=== PATIENT | female | born 1970 | race Caucasian/White ===

== ENCOUNTER 2020-12-20 21:40 | Emergency (ER) | payer SELFPAY ==
--- NOTE | 2020-12-20 22:04 | XRR_ITS ---
PROCEDURE INFORMATION: Exam: XR Chest Exam date and time: 12/20/2020 10:04 PM Age: 50 years old Clinical indication: Cough and shortness of breath; Additional info: SOB TECHNIQUE: Imaging protocol: XR of the chest. Views: 1 view. COMPARISON: No relevant prior studies available. FINDINGS: Lungs: Hazy opacity at the cardiac apex may be secondary to atelectasis or pneumonia. Pleural spaces: Unremarkable. No pleural effusion. No pneumothorax. Heart/Mediastinum: There is mild cardiomegaly. Bones/joints: There is severe levoscoliosis. XR/XR chest 1V portable [id number] IMPRESSION: 1. Mild cardiomegaly. 2. Hazy opacity at the cardiac apex may be secondary to atelectasis or pneumonia.
[2020-12-20 22:23] VITALS: BP 119/66; PULSE 77; RESP 16; TEMP 36.2; O2SAT 99; BMI 19.8
[2020-12-20 22:29] VITALS: O2SAT 99
--- NOTE | 2020-12-20 22:32 | W.ED.COVID ---
HPI - COVID General: Chief Complaint: COVID symptoms Stated Complaint: sob, not feeling well Time Seen by Provider: 12/20/20 22:32 Triage information: No fever, cough or shortness of breath. No known COVID + exposure last 14 days History of Present Illness: HPI Narrative: 50-year-old female comes in today with complaints of cough, congestion, nausea and vomiting for 2 to 4 weeks. Spouse reports that since 1996 after the loss of a child the patient has always been withdrawn from the family. He believes he probably has a mental health issue but she will not go see a psychiatrist. Spouse states that over the last 2 to 4 weeks she has been ill with cough and congestion. He was unable to get her to come to the hospital up until tonight. Patient is a smoker. Patient takes no routine medications. Patient does have severe scoliosis of the spine. COVID 19 common symptoms: positive non-productive cough, nausea and vomiting COVID Results: SARS-CoV-2 Antigen (Rapid) Negative (Negative) 12/20/20 22:40 12/20/20 Review of Systems General: Reports: 10 or more systems reviewed and unremarkable except in HPI and below Resp: Reports: non-productive cough GI: Reports: nausea and vomiting Physical Exam Const: COMMON NORMALS: no acute distress and patient oriented x3 GENERAL APPEARANCE: cooperative HENMT: COMMON NORMALS: normocephalic, TM's normal bilaterally and Normal external nose present HEAD & SCALP: normal to inspection and normocephalic NOSE: Normal external nose present TYMPANIC MEMBRANE: TM's normal bilaterally MOUTH: Normal oral and palatal mucosa present THROAT: posterior oropharynx normal Eye: GENERAL EYE: appearance normal, both eyes and all related structures Neck/C-Spine: COMMON NORMALS: full ROM Lymph: LYMPHATIC: no lymphadenopathy noted Chest: COMMONS NORMALS: normal inspection of the chest Resp: COMMON NORMALS: normal respiratory effort EFFORT & INSPECTION: Yes able to speak in complete sentences AUSCULTATION: rhonchi (Mild rhonchi throughout.) Cardio: COMMON NORMALS: regular rate and regular rhythm RATE: regular rate RHYTHM: regular rhythm GI: COMMON NORMALS: non-tender : COMMON NORMALS: Yes no CVA tenderness BLADDER/KIDNEY EXAM: Yes no CVA tenderness Back/Pelvis: COMMON NORMALS: no CVA tenderness OTHER: Severe scoliosis of the spine. Extremity: NARRATIVE EXTREMITY EXAM: Bilateral pedal edema with edema resolving just above the ankles. Neuro: COMMON NORMALS: patient oriented x3 and moves all extremities Psych: COMMON NORMALS: mental status grossly normal and cooperative Skin: COMMON NORMALS: no rashes or lesions noted GENERAL SKIN EXAM: no rashes or lesions noted Course Vital Signs: Vital signs: Vital Signs Temperature 97.1 F L 12/20/20 22:23 Pulse Rate 77 12/20/20 22:23 Respiratory Rate 16 12/20/20 22:23 Blood Pressure 119/66 12/20/20 22:23 Pulse Oximetry 99 12/20/20 22:29 MDM - COVID MDM Narrative: Medical decision making narrative: Patient comes in with general complaints for the last 2 to 4 weeks. Family was concerned she might have contracted COVID-19. Patient reports an occasional cough, some nausea and vomiting and diarrhea at times. On exam lungs had some mild rhonchi but good air movement throughout. Abdomen was soft and nontender to palpation. Bowel sounds were present. Vital signs were normal. Differential diagnosis includes but not limited to viral syndrome, COVID-19, dehydration, major depressive disorder. Laboratory values noted mild elevation in hemoglobin and hematocrit, metabolic panel suggested some mild dehydration. Urinalysis noted some ketones in the urine but otherwise unremarkable. COVID-19 test was negative. Patient might have had COVID-19 and is on the recovery side of it. I recommended patient encourage plenty of fluids and increase diet as tolerated. Patient was written a prescription for Zofran to help with nausea. Recommended follow-up in 1 week for recheck with primary care. Lab Data: Labs: Lab Results 12/20/20 12/20/20 12/20/20 Range/Units 22:40 22:40 22:40 WBC 5.4 (4.0-10.0) 10^3/ uL RBC 5.09 (4.1-5.3) 10^6/u L Hgb 16.1 H (11.5-15.3) g/dL Hct 48.0 H (37.0-47.0) % MCV 94.3 (81-99) fl MCH 31.6 (28.0-34.0) pg MCHC 33.5 (30.0-36.0) g/dL RDW 14.7 (12.1-15.1) % Plt Count 285 (130-400) 10^3/c mm MPV 8.2 (7.4-10.4) fL Neut % (Auto) 51.6 % Lymph % (Auto) 40.7 % [place] % (Auto) 5.8 % Eos % (Auto) 0.6 % Baso % (Auto) 0.9 % Neut # (Auto) 2.78 (1.8-7.7) 10^3/u L Lymph # (Auto) 2.2 (0.8-4.8) 10^3/u L [place] # (Auto) 0.3 (0.2-0.9) 10^3/u L Eos # (Auto) 0.0 (0.0-0.8) 10^3/u L Baso # (Auto) 0.1 (0.0-0.1) 10^3/u L Nucleated RBC % (a uto) 0 % Nucleated RBCs # 0.0 /100WBC Sodium 139 (136-145) mmol/L Potassium 3.4 L (3.5-5.1) mmol/L Chloride 102 (98-107) mmol/L Carbon Dioxide 19 L (22-29) mmol/L Anion Gap 21.4 H (5-19) BUN 24 H (6-20) mg/dL Creatinine 0.6 (0.5-0.9) mg/dL GFR Calculation 105.4 (90-130) mL/min Glucose 87 (65-115) mg/dL Calculated Osmolal ity 291 (285-295) mOsm/k g Calcium 8.5 (8.5-10.5) mg/dL Total Bilirubin 0.2 (0.15-1.2) mg/dL AST 12 (0-32) U/L ALT 7 (0-33) U/L Alkaline Phosphata se 87 (35-105) IU/L C-Reactive Protein 0.4 (0.0-4.9) mg/L Total Protein 6.6 (6.6-8.7) g/dL Albumin 4.2 (3.5-5.2) g/dL Globulin 2.4 (1.3-4.6) g/dL Lipase 59 (13-60) U/L Urine Color (Yellow) Urine Appearance (CLEAR) Urine pH (5-7) Ur Specific Gravit y (1.005-1.030) Urine Protein (Negative) Urine Glucose (UA) (Normal) Urine Ketones (Negative) Urine Blood (Negative) Urine Nitrate (Negative) Urine Bilirubin (Negative) Urine Urobilinogen (Negative) mg/dL Ur Leukocyte Geovanna ase (Negative) Urine RBC (0-2) /hpf Urine WBC (0-5) /hpf Ur Squamous Epith Cells (0-5) /hpf Amorphous Sediment Urine Bacteria (NONE) /hpf Hyaline Casts /lpf Urine Mucus /hpf SARS-CoV-2 Ag (Rap id) Negative (Negative) 12/20/20 Range/Units 23:00 WBC (4.0-10.0) 10^3/ uL RBC (4.1-5.3) 10^6/u L Hgb (11.5-15.3) g/dL Hct (37.0-47.0) % MCV (81-99) fl MCH (28.0-34.0) pg MCHC (30.0-36.0) g/dL RDW (12.1-15.1) % Plt Count (130-400) 10^3/c mm MPV (7.4-10.4) fL Neut % (Auto) % Lymph % (Auto) % [place] % (Auto) % Eos % (Auto) % Baso % (Auto) % Neut # (Auto) (1.8-7.7) 10^3/u L Lymph # (Auto) (0.8-4.8) 10^3/u L [place] # (Auto) (0.2-0.9) 10^3/u L Eos # (Auto) (0.0-0.8) 10^3/u L Baso # (Auto) (0.0-0.1) 10^3/u L Nucleated RBC % (a uto) % Nucleated RBCs # /100WBC Sodium (136-145) mmol/L Potassium (3.5-5.1) mmol/L Chloride (98-107) mmol/L Carbon Dioxide (22-29) mmol/L Anion Gap (5-19) BUN (6-20) mg/dL Creatinine (0.5-0.9) mg/dL GFR Calculation (90-130) mL/min Glucose (65-115) mg/dL Calculated Osmolal ity (285-295) mOsm/k g Calcium (8.5-10.5) mg/dL Total Bilirubin (0.15-1.2) mg/dL AST (0-32) U/L ALT (0-33) U/L Alkaline Phosphata se (35-105) IU/L C-Reactive Protein (0.0-4.9) mg/L Total Protein (6.6-8.7) g/dL Albumin (3.5-5.2) g/dL Globulin (1.3-4.6) g/dL Lipase (13-60) U/L Urine Color Yellow (Yellow) Urine Appearance Clear (CLEAR) Urine pH 5 (5-7) Ur Specific Gravit y 1.025 (1.005-1.030) Urine Protein Neg (Negative) Urine Glucose (UA) Norm (Normal) Urine Ketones 2+ H (Negative) Urine Blood 2+ H (Negative) Urine Nitrate Negative (Negative) Urine Bilirubin Neg (Negative) Urine Urobilinogen Norm (Negative) mg/dL Ur Leukocyte Geovanna ase Negative (Negative) Urine RBC 0-4 H (0-2) /hpf Urine WBC 0-4 H (0-5) /hpf Ur Squamous Epith Cells 0-4 H (0-5) /hpf Amorphous Sediment Not Reportable Urine Bacteria Trace (NONE) /hpf Hyaline Casts 0-4 H /lpf Urine Mucus 1+ /hpf SARS-CoV-2 Ag (Rap id) (Negative) COVID Results: SARS-CoV-2 Antigen (Rapid) Negative (Negative) 12/20/20 22:40 12/20/20 Discharge Plan Discharge Patient Disposition: Home Clinical Impression: Viral syndrome, Mild dehydration Condition: Stable Prescriptions: New ondansetron 4 mg tablet,disintegrating 4 mg PO Q8H PRN (Reason: nausea and vomiting) Qty: 7 RF: 0 Discharge Orders: Discharge ED (Routine); Ordered 12/20/20 Ordered By: Grover Benites Discharge Diet: Usual diet Discharge Activity: Increase activity as tolerated Patient Instructions: Dehydration (ED), Opioid Safety Activity Restrictions/Additional Instructions: Light diet. Drink plenty of fluids. Use medication as needed for nausea and vomiting. Follow-up with primary care in 1 week for recheck. Return to the ER for worsening symptoms or new concerns. Coding Level of Care Code ED Template Clerk for [facility]iss[facility] Fwd Exam Comprehensive
[2020-12-20 23:05] LABS: Basophils # 0.1 10^3/uL (0.0-0.1); Basophils % 0.9 %; Eosinophils % 0.6 %; Hemoglobin 16.1 g/dL (11.5-15.3); Lymphocytes # 2.2 10^3/uL (0.8-4.8); Lymphocytes % 40.7 %; Mean Corpuscular HGB Conc 33.5 g/dL (30.0-36.0); Mean Corpuscular Hemoglobin 31.6 pg (28.0-34.0); Mean Corpuscular Volume 94.3 fl (81-99); Mean Platelet Volume 8.2 fL (7.4-10.4); Monocytes # 0.3 10^3/uL (0.2-0.9); Monocytes % 5.8 %; Neutrophils # 2.78 10^3/uL (1.8-7.7); Neutrophils % 51.6 %; Nucleated Red Blood Cells % 0 %; Platelet Count 285 10^3/cmm (130-400); Red Blood Count 5.09 10^6/uL (4.1-5.3); Red Cell Distribution Width 14.7 % (12.1-15.1); White Blood Count 5.4 10^3/uL (4.0-10.0)
[2020-12-20] MEDS: sodium chloride 0.9% 500 ML 999 ML IV (23:22)
[2020-12-20] MEDS: ondansetron 2 mg/ML SDV 2 mL 4 MG IVP (23:22)
[2020-12-20 23:26] LABS: Alanine Aminotransferase 7 U/L (0-33); Albumin Level 4.2 g/dL (3.5-5.2); Alkaline Phosphatase 87 IU/L (35-105); Anion Gap 21.4 (5-19); Aspartate Amino Transferase 12 U/L (0-32); Blood Urea Nitrogen 24 mg/dL (6-20); C Reactive Protein 0.4 mg/L (0.0-4.9); Calcium 8.5 mg/dL (8.5-10.5); Carbon Dioxide 19 mmol/L (22-29); Chloride 102 mmol/L (98-107); Globulin 2.4 g/dL (1.3-4.6); Glomerular Filtration Rate 105.4 mL/min (90-130); Glucose 87 mg/dL (65-115); Lipase 59 U/L (13-60); Osmolality Calculated 291 mOsm/kg (285-295); Potassium 3.4 mmol/L (3.5-5.1); Sodium 139 mmol/L (136-145); Total Bilirubin 0.2 mg/dL (0.15-1.2); Total Protein 6.6 g/dL (6.6-8.7)
[2020-12-20 23:30] LABS: Add Urine Microscopic? YES; Bilirubin Urine Neg (Negative); Blood Urine 2+ (Negative); Glucose Urine UA Norm (Normal); Ketones Urine 2+ (Negative); Leukocyte Esterase Urine Negative (Negative); Nitrate Urine Negative (Negative); Protein Urine Neg (Negative); Specific Gravity, Urine 1.025 (1.005-1.030); Urine Appearance Clear (CLEAR); Urine Color Yellow (Yellow); Urobilinogen Urine Norm (Negative); pH Urine 5 (5-7)
[2020-12-20 23:31] LABS: Add Urine Culture? No; Bacteria Urine TRACE /hpf; Hyaline Casts Urine 0-4 /lpf; Mucus Urine 1+ /hpf; RBC Urine 0-4 /hpf (0-2); Squamous Epithelial Cell Urine 0-4 /hpf (0-5); WBC Urine 0-4 /hpf (0-5)
[2020-12-20 23:33] LABS: SARS Covid-2 Antigen Negative (Negative)
[2020-12-20] MEDS: dexamethasone 10 mg/mL INJ 6 MG IVP (23:49)
[2020-12-20] MEDS: cefTRIAXone 1,000 MG in sodium chloride 0.9% (plus) 50 ML 100 MG IV (23:51)
[2020-12-20 23:52] VITALS: BP 95/62; PULSE 73; RESP 18; O2SAT 99
[2020-12-21 00:19] VITALS: BP 95/62; PULSE 73; RESP 18; TEMP 36.2; O2SAT 99
== END 2020-12-21 00:21 | disposition home or self-care (01) ==
PROVIDERS: Emergency Provider Nurse Practitioner Family
DX: B34.9 Viral infection, unspecified (principal); E86.0 Dehydration; Z20.822 Contact with and (suspected) exposure to COVID-19
CPT/HCPCS: 71045; 80053; 81001; 83690; 85025; 86140; 87426; 96365; 96375; 99284; J0696; J1100; J2405; J7040

== ENCOUNTER 2021-08-13 15:36 | Outpatient (CLI) | payer OTHER, SELFPAY ==
--- NOTE | 2021-08-13 15:46 | XRR_ITS ---
PROCEDURE INFORMATION: Exam: XR Entire Spine, 2 or 3 Views, Scoliosis Exam date and time: 08/13/2021 3:49 PM Age: 50 years old Clinical indication: Low back pain; Patient HX: Chronic back pain; Additional info: M41.9 - scoliosis, unspecified TECHNIQUE: Imaging protocol: XR of the entire spine, 2 or 3 views. Evaluation for scoliosis. COMPARISON: CR (CHEST, ) 12/20/2020 10:54 PM FINDINGS: Vertebrae: Severe lumbar spine levoscoliosis with a Ambrose angle of 50 degrees as measured between the superior endplate of L1 and inferior endplate of L5. Soft tissues: Normal. XR/XR scoliosis survey 4-5V [id number] IMPRESSION: Severe lumbar spine levoscoliosis with a Ambrose angle of 50 degrees as measured between the superior endplate of L1 and inferior endplate of L5.
== END 2021-08-13 15:37 | disposition home or self-care (01) ==
LOC: RAD 15:38
PROVIDERS: PCP Nurse Practitioner Family; Visit Provider Nurse Practitioner Family
DX: M41.86 Other forms of scoliosis, lumbar region (principal)
CPT/HCPCS: 72083